=== PATIENT | male | born 1980 | race Caucasian/White ===

== ENCOUNTER 2018-08-29 17:56 | Emergency (ER) | payer BC ==
[2018-08-29 18:16] VITALS: BP 113/91; PULSE 91; RESP 16; TEMP 97.9; O2SAT 98
[2018-08-29] MEDS ORDERED: KETOROLAC TROMETHAMINE 30 MG/ML SOL IM ONE (18:46)
[2018-08-29] MEDS ORDERED: HYDROMORPHONE HCL 2 MG/ML SOL IM ONE (18:47)
[2018-08-29] MEDS ORDERED: CYCLOBENZAPRINE 10 MG TAB PO ONE (18:47)
[2018-08-29] MEDS ORDERED: KETOROLAC TROMETHAMINE 30 MG/ML SOL ONE (18:48)
[2018-08-29] MEDS ORDERED: CYCLOBENZAPRINE 10 MG TAB ONE (18:48)
== END 2018-08-29 19:27 | disposition home or self-care (01) ==
LOC: ED 17:56
DX: M54.5 Low back pain (principal)
CPT/HCPCS: 72120; 96372; 99282; J1885; A9270-GY